=== PATIENT | male | born 1995 | race Caucasian/White ===

== ENCOUNTER 2020-09-26 10:17 | Inpatient (IN) ==
[2020-09-26] MEDS ORDERED: NS 0.9% 1000 ml BAG 1,000 ML IV ONE ×2 (10:54→12:40)
[2020-09-26 11:42] LABS: ABS Basophils 0.1 10^3/ul (0-0.2); ABS Lymphocytes 1.3 10^3/ul (1.0-4.8); ABS Monocytes 0.2 10^3/ul (0-0.8); ABS Neutrophils 3.8 10^3/ul (1.5-7.7); Eosinophil % 0.5 %; Hematocrit 45 % (42-52); Hemoglobin 15.5 g/dL (14.0-18.0); Lymphocyte % 23.9 %; Mean Corpuscular HGB Conc 35 g/dL (31-36); Mean Corpuscular Hemoglobin 31 pg (27-31); Mean Corpuscular Volume 90 fL (80-94); Mean Platelet Volume 6.6 fL (7.4-10.4); Nucleated Red Blood Cells % 0.1; Platelet Count 208 10^3/uL (150-450); Red Cell Distribution Width 13 % (10-15); White Blood Count 5.4 10^3/uL (3.5-10.8)
[2020-09-26 11:57] LABS: ALT 15 U/L (7-52); AST 20 U/L (13-39); Albumin 4.6 g/dL (3.2-5.2); Albumin/Globulin Ratio 1.8 (1-3); Alkaline Phosphatase 55 U/L (34-104); Anion Gap 10 mmol/L (2-11); BUN/Creatinine Ratio 13.2 (8-20); Blood Urea Nitrogen 12 mg/dL (6-24); CO2 Carbon Dioxide 25 mmol/L (22-32); Calcium 9.3 mg/dL (8.6-10.3); Chloride 105 mmol/L (101-111); EGFR African American 121.9 (>60); EGFR Non-African American 100.7 (>60); Globulin 2.5 g/dL (2-4); Glucose 81 mg/dL (70-100); Sodium 140 mmol/L (135-145); Total Protein 7.1 g/dL (6.4-8.9)
[2020-09-26 12:28] LABS: Acetaminophen < 15 mcg/mL; Alcohol, S 219 mg/dL (<10); Salicylate < 2.50 mg/dL (<30)
[2020-09-26] MEDS ORDERED: Al Hydrox/Mg Hydrox/Simet LIQ 30 ML UDC PO PRN (21:14)
[2020-09-26] MEDS ORDERED: LORazepam PO 0-6 for WAM protocol PO SCH (22:00)
[2020-09-27] MEDS: Thiamine TAB* 100 MG TAB DAILY (@ T+1) PO SCH (08:25)
[2020-09-27] MEDS: Vitamin THERAPEUTIC TAB PO SCH (08:25)
[2020-09-27] MEDS: Folic Acid TAB* 1 MG DAILY PO SCH (08:25)
[2020-09-27 15:17] LABS: Urine Appearance Cloudy; Urine Bilirubin Negative (Negative); Urine Blood Negative (Negative); Urine Color Yellow; Urine Glucose Negative (Negative); Urine Ketones Negative (Negative); Urine Nitrite Negative (Negative); Urine Protein Negative (Negative); Urine Specific Gravity 1.001 (1.010-1.030); Urine Urobilinogen Negative (Negative)
[2020-09-27 15:52] LABS: Urine Benzodiazepine Screen None Detected (None Detect); Urine Cannabinoids Screen None Detected (None Detect); Urine Opiates Screen None Detected (None Detect)
[2020-09-27 17:01] LABS: TSH Ultra Thyroid Stim Horm 1.75 mcIU/mL (0.34-5.60)
[2020-09-27 21:51] LABS: Urine Buprenorphine Screen None Detected (None Detect); Urine Fentanyl Screen None Detected (None Detect); Urine Hydrocodone Screen None Detected (None Detect)
[2020-09-28] MEDS: Vitamin THERAPEUTIC TAB PO SCH (09:01)
[2020-09-28] MEDS: Folic Acid TAB* 1 MG DAILY PO SCH (09:01)
[2020-09-28] MEDS: Thiamine TAB* 100 MG TAB DAILY (@ T+1) PO SCH (09:01)
[2020-09-29] MEDS: Folic Acid TAB* 1 MG DAILY PO SCH (08:47)
[2020-09-29] MEDS: Thiamine TAB* 100 MG TAB DAILY (@ T+1) PO SCH (08:49)
[2020-09-29] MEDS: Vitamin THERAPEUTIC TAB PO SCH (08:49)
[2020-09-29 08:55] LABS: HDL Cholesterol 85.6 mg/dL
[2020-09-30] MEDS: Vitamin THERAPEUTIC TAB PO SCH (07:59)
[2020-09-30] MEDS: Folic Acid TAB* 1 MG DAILY PO SCH (07:59)
[2020-09-30] MEDS: Thiamine TAB* 100 MG TAB DAILY (@ T+1) PO SCH (07:59)
[2020-09-30 09:16] VITALS: BP 124/81
[2020-09-30] MEDS ORDERED: Naltrexone INJ 380 MG IM ONE (10:30)
== END 2020-09-30 14:30 | disposition home or self-care (01) | DRG 880 ==
LOC: ED 10:17 → BSU 17:20
PROVIDERS: ADMIT Psychiatry & Neurology Addiction Psychiatry; ATTEND Psychiatry & Neurology Psychiatry